=== PATIENT | male | born 2000 | race Caucasian/White ===

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

== ENCOUNTER 2024-11-25 21:31 | Emergency (ER) | payer OTHER ==
[~2024-11-25] VITALS: Ht 175.3 cm; Wt 70.3 kg
[2024-11-25 21:39] VITALS: BP 131/80
[2024-11-25] MEDS ORDERED: CEFP200 PO (22:14)
== END 2024-11-25 22:29 | disposition home or self-care (01) ==
LOC: ER 21:31
DX: S61.041A Puncture wound with foreign body of right thumb without damage to nail, initial encounter (principal); Z88.0 Allergy status to penicillin; W45.8XXA Other foreign body or object entering through skin, initial encounter
CPT/HCPCS: 10120; 90471; 90715; 99282-25; A9270